=== PATIENT | male | born 1960 | race Caucasian/White ===

== ENCOUNTER → 2020-06-22 | Outpatient (CLI) | payer BC ==
--- NOTE | 2020-06-22 10:46 | XR ---
EXAMINATION TYPE: XR knee complete LT DATE OF EXAM: 06/22/2020 CLINICAL HISTORY: pain TECHNIQUE: Three views of the left knee are obtained. COMPARISON: None. FINDINGS: There is no acute fracture/dislocation. The tri-compartment joint spaces appear within no rmal limits. The overlying soft tissue appears unremarkable. IMPRESSION: There is no acute fracture or dislocation ICD 10 NO FRACTURE, INITIAL EVALUATION
--- NOTE | 2020-06-22 10:59 | XR ---
EXAMINATION TYPE: XR calcaneus 2V RT DATE OF EXAM: 06/22/2020 COMPARISON: NONE HISTORY: Pain TECHNIQUE: 2 views of the right os calcis are submitted. FINDINGS: No evidence for fracture or dislocation. IMPRESSION: Negative
== END | disposition home or self-care (01) ==
LOC: RADXRMAIN 10:05
PROVIDERS: ATTEND Family Medicine
DX: M25.562 Pain in left knee (principal); M79.671 Pain in right foot

== ENCOUNTER → 2023-11-20 | Outpatient (CLI) | payer BC, MEDICARE ==
--- NOTE | 2023-11-21 00:12 | CA ---
Transthoracic Echo Report Name: Christofer Thornton Age: 63 Gender: M : 1960 Exam Date: 11/20/2023 15:41 Exam Location: [facility] Ht (in): 73 Wt (lb): 219 Ordering Physician: Herminio Sanchez MD Attending/Referring Phys: Glue Mounter Operator Ashley Pang RDCS Procedure CPT: Indications: R00.1 BRADYCARDIA, UNSPECIFIED Cardiac Hx: Technical Quality: Fair Contrast 1: Total Dose (mL): Contrast 2: Total Dose (mL): MEASUREMENTS (Male / Female) Normal Values 2D ECHO LV Diastolic Diameter PLAX 5.6 cm 4.2 - 5.9 / 3.9 - 5.3 cm LV Systolic Diameter PLAX 3.5 cm IVS Diastolic Thickness 1.0 cm 0.6 - 1.0 / 0.6 - 0.9 cm LVPW Diastolic Thickness 0.9 cm 0.6 - 1.0 / 0.6 - 0.9 cm LV Relative Wall Thickness 0.3 RV Internal Dim ED PLAX 3.2 cm LA Systolic Diameter LX 3.8 cm 3.0 - 4.0 / 2.7 - 3.8 cm LV Diastolic Volume MOD BP 80.6 cm??? 67 - 155 / 56 - 104 cm??? LV Systolic Volume MOD BP 38.1 cm??? 22 - 58 / 19 - 49 cm??? LV Ejection Fraction MOD BP 52.7 % >= 55 % LV Cardiac Index MOD BP 1154.6 cm???/min???m??? LV Diastolic Volume MOD 4C 81.9 cm??? LV Systolic Volume MOD 4C 46.6 cm??? LV Ejection Fraction MOD 4C 43.1 % LV Cardiac Index MOD 4C 958.5 cm???/min???m??? LV Diastolic Length 4C 7.9 cm LV Systolic Length 4C 7.1 cm LV Diastolic Volume MOD 2C 76.3 cm??? LV Systolic Volume MOD 2C 29.8 cm??? LV Ejection Fraction MOD 2C 60.9 % LV Cardiac Index MOD 2C 1264.1 cm???/min???m??? LV Diastolic Length 2C 7.5 cm LV Systolic Length 2C 6.3 cm M-MODE Aortic Root Diameter MM 3.5 cm LA Systolic Diameter MM 3.6 cm LA Ao Ratio MM 1.0 DOPPLER AV Peak Velocity 166.9 cm/s AV Peak Gradient 11.1 mmHg Mitral E Point Velocity 61.5 cm/s Mitral A Point Velocity 74.6 cm/s Mitral E to A Ratio 0.8 MV Deceleration Time 354.1 ms MV E' Velocity 5.8 cm/s Mitral E to MV E' Ratio 10.5 TR Peak Velocity 232.8 cm/s TR Peak Gradient 21.7 mmHg Right Ventricular Systolic Press 26.7 mmHg FINDINGS Left Ventricle Left ventricular ejection fraction is estimated at 55-60 %. Left ventricular cavity size normal. Left ventricular wall thickness normal. Right Ventricle Normal right ventricular size and function. Right ventricular systolic pressure within normal limits. Right Atrium Normal right atrial size. Left Atrium Normal left atrial size. Mitral Valve Structurally normal mitral valve. No mitral stenosis, regurgitation or prolapse. Aortic Valve Trileaflet aortic valve. No aortic valve stenosis or regurgitation. Tricuspid Valve Structurally normal tricuspid valve. Mild tricuspid regurgitation. Pulmonic Valve Structurally normal pulmonic valve. Pericardium No pericardial effusion. Aorta Normal size aortic root and proximal ascending aorta. CONCLUSIONS Left ventricular ejection fraction 55-60% RVSP 26 No mitral regurgitation Mild tricuspid regurgitation Previewed by: Dr. Adrian Akers DO (Electronically Signed) Final Date: 21 November 2023 00:11
== END | disposition home or self-care (01) ==
LOC: RADECHMAIN 15:28
PROVIDERS: ATTEND Family Medicine
DX: I36.1 Nonrheumatic tricuspid (valve) insufficiency (principal); R00.1 Bradycardia, unspecified
CPT/HCPCS: 93306